=== PATIENT | male | born 1970 | race African-American/Black ===

== ENCOUNTER 2024-05-20 04:29 | Emergency (ER) | payer MEDICAID ==
[~2024-05-20] VITALS: Ht 182.9 cm; Wt 113.4 kg
[2024-05-20] MEDS ORDERED: PRED50TA PO (04:51)
[2024-05-20] MEDS ORDERED: predniSONE 50 MG TABLET ONE (04:54)
[2024-05-20] MEDS: predniSONE 50 MG TABLET PO ONE (04:59)
[2024-05-20 05:05] VITALS: BP 140/86; TEMP 98; O2SAT 100
== END 2024-05-20 05:05 | disposition home or self-care (01) ==
LOC: ER 04:50
DX: R21 Rash and other nonspecific skin eruption (principal); I10 Essential (primary) hypertension; E11.9 Type 2 diabetes mellitus without complications; Z79.52 Long term (current) use of systemic steroids
CPT/HCPCS: 99283; J7512; A4606; A4663